=== PATIENT | male | born 2005 | race African-American/Black ===

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

== ENCOUNTER 2024-05-30 15:50 | Emergency (ER) | payer OTHER ==
[~2024-05-30] VITALS: Ht 167.6 cm; Wt 69.6 kg
[~2024-05-30 15:50] MED LIST changes: +ACETAMINOPHEN500 MG PO; +AZITHROMYCIN250 MG PO; +BROMPHENIR-PSE118 ML PO; +IBUPROFEN600 MG PO; +THERAFLU COLD1 EAC4 PO; +VENTOLIN HFA18 GM INH
[2024-05-30 15:57] VITALS: PULSE 96; RESP 18; TEMP 98.2; O2SAT 98
[2024-05-30] MEDS ORDERED: CETIRIZINE HCL10 M1 (16:20)
== END 2024-05-30 16:50 | disposition home or self-care (01) ==
LOC: FSED 15:57
DX: R51.9 Headache, unspecified (principal); J45.909 Unspecified asthma, uncomplicated; F84.0 Autistic disorder
CPT/HCPCS: 99283